=== PATIENT | female | born 1990 | race Caucasian/White ===

== ENCOUNTER 2016-08-21 17:53 | Emergency (ER) | payer OTHER ==
--- NOTE | 2016-08-25 14:01 | ER ---
ADMIT: 08/21/2016 RM/LOC: ER [facility] MR#: [id number] [facility] [address] [place], [place] [id number] DOMINICK ARANA [address] [place] [address] Emergency Room Report SEX: F AGE: 26 : 1990 DATE: 08/21/2016 CHIEF COMPLAINT: Headache and hypertension. HISTORY OF PRESENT ILLNESS: A 26-year-old female presents to the ER after being seen at [facility] today. States she was in [facility] complaining of headache and hypertension. Initial readings were greater than 200, sent to the ER for further evaluation and management. States she has had this headache for about 2 days, gradual in onset. She does have a history of hypertension. She is currently not taking her medicine for the last year and a half. She was a resident of [facility] recently, moved to [place], has not been taking her medications despite her known diagnosis. Says the headache is a 10/10, similar to previous headaches. Does have a past history of migraine headaches. Denies any fever, chills, problems with vision, sensation to light, or vomiting. She does have some nausea and dizziness. No weakness, neck pain, or trouble walking. COURSE IN THE EMERGENCY ROOM: The patient was seen and examined. Afebrile and nontoxic. No acute distress. HEENT: Eyes are equal and reactive. Extraocular muscles are intact. No purulent sinus drainage or pain with percussion. Pharynx is nonerythematous. NECK: Soft and supple. No stiffness or lymphadenopathy. CHEST: Clear. HEART: Regular rate and rhythm. ABDOMEN: Soft and nontender. SKIN: Warm and dry. EXTREMITIES: No pedal edema. NEURO: She is alert and oriented. Cranial nerves are normal as tested. No facial palsy or tongue deviation. She is able to ambulate on her own power without difficulty. Motor and sensation are equal in the upper and lower extremities compared bilaterally. While in the department today, I did give her Reglan 10 mg IM, Toradol 15 mg IM as well as enalapril 10 mg p.o., she states she is feeling much better. Her ADMIT: 08/21/2016 RM/LOC: [facility] MR#: [id number] [id number] [id number] APOORVA S[place], DOMINICK [address] [place] [address] Emergency Room Report SEX: F AGE: 26 : 1990 pressures have resolved down to the 150 systolically. She is ready for discharge. IMPRESSION: 1. Migraine headache. 2. Hypertension, poor control. DISPOSITION: The patient discharged. Start lisinopril 10 mg p.o. daily. She is to follow up with [facility] next week. Return for worsening signs or symptoms. Tylenol and Motrin as needed for pain. Go home and rest. Questions sought and answered to the best of my ability and to the patient's satisfaction. Discharged home in stable condition. NADIA Stoddard / Osiel Suárez MD / jiml JOB #: [id number] CC: Rock Fernandez MD, Attending Physician oJao Rivas MD, Family Physician
== END 2016-08-21 20:10 | disposition home or self-care (01) ==
LOC: ER 17:53
DX: G43.909 Migraine, unspecified, not intractable, without status migrainosus (principal); I10 Essential (primary) hypertension